=== PATIENT | male | born 1980 | race Hispanic/Latino ===

== ENCOUNTER 2020-05-10 06:32 | Emergency (ER) | payer SELFPAY | END 2020-05-10 07:06 | LOC: EDH 06:32 | DX: Z02.83 Encounter for blood-alcohol and blood-drug test (principal) ==

== ENCOUNTER 2023-06-13 21:21 | Inpatient (IN) | payer OTHER ==
[~2023-06-13] VITALS: Ht 170.2 cm; Wt 78.0 kg
[2023-06-13] MEDS ORDERED: ASPIRIN 81MG CHEW TAB PO ONE (23:00)
[2023-06-13 23:15] LABS: BASOPHILS # (AUTO) 0.02 K/uL (0.00-0.20); BASOPHILS % (AUTO) 0.2 % (0.0-5.0); EOSINOPHILS # (AUTO) 0.32 K/uL (0.00-0.70); EOSINOPHILS % (AUTO) 3.5 % (0.0-8.0); HEMATOCRIT 45.2 % (42-54); IMMATURE GRANULOCYTE ABSOLUTE 0.04 K/uL (0-1); LYMPHOCYTES # (AUTO) 1.1 K/uL (1.0-4.8); LYMPHOCYTES % (AUTO) 12.5 % (21.0-51.0); MEAN CORPUSCULAR HEMOGLOBIN 32.2 pg (27.0-33.0); MEAN CORPUSCULAR HGB CONC 36.1 g/dL (32.0-36.0); MEAN CORPUSCULAR VOLUME 89.3 fL (79-99); MONOCYTES # (AUTO) 0.9 K/uL (0.1-1.0); MONOCYTES % (AUTO) 10.3 % (3.0-13.0); NEUTROPHILS # (AUTO) 6.6 K/uL (1.8-7.7); NEUTROPHILS % (AUTO) 73.1 % (40.0-77.0); PLATELET COUNT (AUTO) 119 K/uL (130-400); RED BLOOD CELL COUNT(AUTO) 5.06 MIL/uL (4.50-6.20); RED CELL DISTRIBUTION WIDTH 11.7 % (11.0-15.5); WHITE BLOOD COUNT (AUTO) 9.1 K/uL (4.8-10.8)
[2023-06-13 23:45] LABS: ALBUMIN 3.5 g/dL (3.5-5.0); BILIRUBIN,TOTAL 1.7 mg/dL (0.2-1.0); CREATININE 0.8 mg/dL (0.5-1.5); POTASSIUM 3.5 mmol/L (3.5-5.1); TOTAL PROTEIN, SERUM 8.3 g/dL (6.0-8.3)
[2023-06-13 23:54] LABS: B-TYPE NATRIURETIC PEPTIDE 27 pg/mL (0-100)
[2023-06-14 00:04] LABS: PLATELET MORPHOLOGY LARGE PLTS PRESENT
[2023-06-14] MEDS ORDERED: IOHEXOL-350 75 ML VIAL IV ONE (00:27)
[2023-06-14] MEDS ORDERED: LORAZEPAM 2 MG/ML 1 ML VIAL IVP ONE (00:30)
[2023-06-14] MEDS ORDERED: 0.9%NACL 1000ML 2,000 ML IV ONE (00:30)
[2023-06-14 01:56] LABS: APPEARANCE,URINE CLEAR (CLEAR); BILIRUBIN,URINE NEGATIVE (NEGATIVE); COLOR,URINE COLORLESS (YELLOW); GLUCOSE, URINE (UA) 70 mg/dL (NEGATIVE); KETONES,URINE 10 mg/dL (NEGATIVE); LEUKOCYTE ESTERASE ,URINE NEGATIVE Leu/uL (NEGATIVE); NITRATE,URINE NEGATIVE (NEGATIVE); OCCULT BLOOD,URINE SMALL (NEGATIVE); PROTEIN,URINE NEGATIVE (NEGATIVE); UROBILINOGEN,URINE 0.2 mg/dL (0.2-1.0)
[2023-06-14 01:57] LABS: ADD UA MICROSCOPIC YES
[2023-06-14 01:59] LABS: WBC,URINE 0-1 /HPF (0-1)
[2023-06-14] MEDS ORDERED: HYDRALAZINE 20MG/ML VIAL IV ONE (02:00)
[2023-06-14 03:26] LABS: AMPHET/METH SCREEN,URINE NEGATIVE (NEGATIVE); BARBITURATE SCREEN, URINE NEGATIVE (NEGATIVE); BENZODIAZEPINES SCREEN,URINE NEGATIVE (NEGATIVE); CANNABINOID SCREEN,URINE NEGATIVE (NEGATIVE); COCAINE SCREEN,URINE NEGATIVE (NEGATIVE); OPIATE SCREEN,URINE NEGATIVE (NEGATIVE); PHENCYCLIDINE SCREEN,URINE NEGATIVE (NEGATIVE)
[2023-06-14 04:00] VITALS: BP 161/107; PULSE 78; RESP 16
[2023-06-14] MEDS ORDERED: 0.9%NACL 1000ML 1,000 ML IV SCH (04:30)
[2023-06-14] MEDS ORDERED: PHARMACY COMMUNICATION MISC PRN (04:30)
[2023-06-14] MEDS ORDERED: ONDANSETRON 4MG INJ IV PRN (04:30)
[2023-06-14] MEDS ORDERED: ACETAMINOPHEN 325 MG TAB PO PRN ×2 (04:30)
[2023-06-14] MEDS ORDERED: CHLORDIAZEPOXIDE HCL 25 MG CAP PO PRN (04:30)
[2023-06-14] MEDS ORDERED: LORAZEPAM 2 MG/ML 1 ML VIAL IVP PRN (04:30)
[2023-06-14 05:00] VITALS: O2SAT 99
[2023-06-14] MEDS ORDERED: HYDRALAZINE 20MG/ML VIAL IV PRN (05:00)
[2023-06-14 05:53] VITALS: BP 129/86; PULSE 104
[2023-06-14 06:58] LABS: BASOPHILS # (AUTO) 0.02 K/uL (0.00-0.20); BASOPHILS % (AUTO) 0.3 % (0.0-5.0); EOSINOPHILS # (AUTO) 0.03 K/uL (0.00-0.70); EOSINOPHILS % (AUTO) 0.4 % (0.0-8.0); HEMATOCRIT 44.2 % (42-54); IMMATURE GRANULOCYTE ABSOLUTE 0.05 K/uL (0-1); LYMPHOCYTES # (AUTO) 1.4 K/uL (1.0-4.8); LYMPHOCYTES % (AUTO) 17.4 % (21.0-51.0); MEAN CORPUSCULAR HEMOGLOBIN 32.9 pg (27.0-33.0); MEAN CORPUSCULAR HGB CONC 36.2 g/dL (32.0-36.0); MEAN CORPUSCULAR VOLUME 90.9 fL (79-99); MONOCYTES # (AUTO) 1.4 K/uL (0.1-1.0); MONOCYTES % (AUTO) 17.4 % (3.0-13.0); NEUTROPHILS % (AUTO) 63.9 % (40.0-77.0); PLATELET COUNT (AUTO) 115 K/uL (130-400); RED BLOOD CELL COUNT(AUTO) 4.86 MIL/uL (4.50-6.20); RED CELL DISTRIBUTION WIDTH 11.5 % (11.0-15.5); WHITE BLOOD COUNT (AUTO) 7.8 K/uL (4.8-10.8)
[2023-06-14 07:33] LABS: ALBUMIN 3.2 g/dL (3.5-5.0); BILIRUBIN,DIRECT 0.5 mg/dL (0.0-0.3); BILIRUBIN,TOTAL 1.8 mg/dL (0.2-1.0); CREATININE 0.7 mg/dL (0.5-1.5); MAGNESIUM 1.8 mg/dL (1.80-2.40); POTASSIUM 3.4 mmol/L (3.5-5.1); TOTAL PROTEIN, SERUM 7.3 g/dL (6.0-8.3)
[2023-06-14] MEDS ORDERED: POTASSIUM CHLORIDE 20MEQ/100ML 100 ML IV PRN (09:00)
[2023-06-14] MEDS ORDERED: MAGNESIUM 2GM PREMIX 50ML 50 ML IV SCH (09:00)
[2023-06-14] MEDS ORDERED: FAMOTIDINE 20MG VIAL IV SCH ×2 (09:00)
[2023-06-14] MEDS ORDERED: M.V.I. IV [ADULT] 10 ML, FOLIC ACID 1 MG, THIAMINE HCL 100 MG in 0.9%NACL 1000ML 1,000 ML IV SCH (09:00)
[2023-06-14] MEDS ORDERED: POTASSIUM CHLORIDE 10% ELIXIR 20 MEQ/15 ML UDCUP PO PRN (09:00)
[2023-06-14] MEDS ORDERED: KCL 20 MEQ ERTAB PO PRN (09:00)
[2023-06-14 09:56] VITALS: BP 137/92; PULSE 79; RESP 18; O2SAT 98
[2023-06-14 21:28] LABS: HEPATITIS A IGM ANTIBODY Non-Reactive (Nonreactive); HEPATITIS B CORE IGM ANTIBODY Non-Reactive (Negative); HEPATITIS B SURFACE ANTIGEN Non-Reactive (Nonreactive); HEPATITIS C ANTIBODY Non-Reactive (Nonreactive)
== END 2023-06-14 11:54 | disposition left against medical advice (07) | DRG 558 ==
LOC: EDH 21:21 → EDHIP 21:22
PROVIDERS: ADMIT Hospitalist; ATTEND Hospitalist
DX: M62.82 Rhabdomyolysis (principal); E87.1 Hypo-osmolality and hyponatremia; F10.939 Alcohol use, unspecified with withdrawal, unspecified; Z53.29 Procedure and treatment not carried out because of patient's decision for other reasons; D69.6 Thrombocytopenia, unspecified; E86.0 Dehydration; I10 Essential (primary) hypertension; K76.0 Fatty (change of) liver, not elsewhere classified; Z82.49 Family history of ischemic heart disease and other diseases of the circulatory system
CPT/HCPCS: 36415; 71045; 71270; 80048; 80053; 80074; 80076; 80305; 81001; 82550; 82977; 83735; 83880; 84484; 85025; 85378; 93005; G0378; J0360; J2060; J3411; J3475; J3490; J7030; Q9967

== ENCOUNTER 2023-08-13 13:07 | Emergency (ER) | payer SELFPAY ==
[~2023-08-13] VITALS: Ht 170.2 cm; Wt 72.6 kg
[2023-08-13 13:29] VITALS: BP 148/103; PULSE 84; RESP 16
[2023-08-13 14:04] LABS: HEMATOCRIT 45.5 % (42-54); MEAN CORPUSCULAR HEMOGLOBIN 32.4 pg (27.0-33.0); MEAN CORPUSCULAR HGB CONC 34.7 g/dL (32.0-36.0); MEAN CORPUSCULAR VOLUME 93.4 fL (79-99); RED BLOOD CELL COUNT(AUTO) 4.87 MIL/uL (4.50-6.20); RED CELL DISTRIBUTION WIDTH 12.3 % (11.0-15.5); WHITE BLOOD COUNT (AUTO) 3.8 K/uL (4.8-10.8)
[2023-08-13 14:12] LABS: CREATININE 0.8 mg/dL (0.5-1.5); POTASSIUM 3.9 mmol/L (3.5-5.1)
[2023-08-13 14:17] LABS: ALBUMIN 3.8 g/dL (3.5-5.0); BILIRUBIN,TOTAL 0.9 mg/dL (0.2-1.0); TOTAL PROTEIN, SERUM 8.3 g/dL (6.0-8.3)
[2023-08-13 15:41] LABS: INR <= 0.93 (0.85-1.15); PROTHROMBIN TIME 10.3 SEC (9.6-11.6)
[2023-08-13 15:43] LABS: PARTIAL THROMBOPLASTIN TIME 28.4 SEC (26.3-35.5)
== END 2023-08-13 16:19 | disposition home or self-care (01) ==
LOC: EDH 13:07
DX: D69.6 Thrombocytopenia, unspecified (principal); F10.90 Alcohol use, unspecified, uncomplicated; Z98.890 Other specified postprocedural states
CPT/HCPCS: 36415; 80053; 85027; 85610; 85730